=== PATIENT | female | born 1950 | race Hispanic/Latino ===

== ENCOUNTER → 2020-11-19 | Outpatient (CLI) | payer MEDICARE | LOC: RAD 11:53 | DX: M25.471 Effusion, right ankle (principal); M25.474 Effusion, right foot ==

== ENCOUNTER → 2021-07-22 | Outpatient (CLI) | payer MEDICARE ==
[~2021-07-22] MED LIST: ALENDRONATE SOD10 MG PO; ASPIRIN81 MG PO; CARVEDILOL25 MG PO; FUROSEMIDE40 MG PO; GLIMEPIRIDE2 MG PO; HYDROCHLOROTHIA25 MG PO; LEVOTHYROXINE50 MCG PO; LISINOPRIL10 MG PO; LOSARTAN POTAS100 MG PO; METFORMIN HCL500 MG PO; NIFEDIPINE ER30 M1 PO; POTASSIUM CHLO10 ME1 PO; PROTONIX20 MG PO; SIMVASTATIN40 MG PO; VITAMIN C500 MG PO; VITAMIN D310 MCG PO; zinc PO
== END ==
LOC: RAD 13:53
DX: R06.00 Dyspnea, unspecified (principal)
CPT/HCPCS: 71046

== ENCOUNTER 2021-07-23 11:24 | Observation (INO) | payer MEDICARE ==
[~2021-07-23] VITALS: Ht 152.4 cm; Wt 81.6 kg
[2021-07-23] MEDS ORDERED: HYDRALAZINE HCL 20 MG/ML VIAL IV STA (11:43)
[2021-07-23 11:53] LABS: BASOPHILS # (AUTO) 0.1 (0.0-0.1); BASOPHILS % 0.7 % (0.0-1.0); EOSINOPHILS # (AUTO) 0.4 (0.0-0.4); EOSINOPHILS % 4.1 % (0.0-6.0); HEMATOCRIT 32.4 % (34.2-44.1); HEMOGLOBIN 10.3 g/dL (12.0-16.0); LYMPHOCYTES # (AUTO) 3.2 (1.0-3.2); LYMPHOCYTES % 36.3 % (18.0-39.1); MEAN CORPUSCULAR HEMOGLOBIN 28.5 pg (28-32); MEAN CORPUSCULAR HGB CONC 31.8 g/dL (31-35); MEAN CORPUSCULAR VOLUME 89.8 fL (81-99); MONOCYTES # (AUTO) 0.7 (0.2-0.8); MONOCYTES % 7.5 % (4.4-11.3); NEUTROPHILS # (AUTO) 4.5 (2.1-6.9); NEUTROPHILS % 51.2 % (38.7-80.0); PLATELET COUNT 247 x10e3/uL (140-360); RED BLOOD COUNT 3.61 x10e6/uL (3.6-5.1); RED CELL DISTRIBUTION WIDTH 14.5 % (11.7-14.4)
[2021-07-23 11:57] LABS: INR 1.03; PROTHROMBIN TIME 14.4 seconds (11.9-14.5)
[2021-07-23 11:58] LABS: PARTIAL THROMBOPLASTIN TIME 33.4 seconds (23.8-35.5)
[2021-07-23 12:04] LABS: ALBUMIN 3.7 g/dL (3.5-5.0); ALBUMIN/GLOBULIN RATIO 0.9 (0.8-2.0); ANION GAP 16.3 mmol/L (8-16); CALCIUM 10.4 mg/dL (8.4-10.2); CREATININE, SERUM 1.22 mg/dL (0.57-1.11); POTASSIUM 4.3 mmol/L (3.5-5.1)
[2021-07-23 12:10] LABS: CREATINE KINASE MB 0.9 ng/mL (0-5.0)
[2021-07-23] MEDS ORDERED: ONDANSETRON HCL INJ 2MG/ML 2ML 2 MG/ML VIAL IV PRN (13:15)
[2021-07-23 15:30] VITALS: BP 162/64
[2021-07-23 16:00] VITALS: BP_SYST 155; BP_SYST 162; BP_DIAS 64; BP_DIAS 70
[2021-07-23] MEDS ORDERED: DEXTROSE 50% SYRINGE 50 ML IV PRN (16:00)
[2021-07-23] MEDS: INSULIN REGULAR, HUMAN 100 UNIT/1 ML SQ SCH ×2 (16:30→20:31)
[2021-07-23] MEDS ORDERED: CARVEDILOL 12.5 MG TAB PO SCH (17:00)
[2021-07-23] MEDS ORDERED: HYDROCHLOROTHIA25 MG PO (17:21)
[2021-07-23] MEDS ORDERED: METFORMIN HCL500 MG PO (17:21)
[2021-07-23] MEDS ORDERED: PROTONIX20 MG PO (17:21)
[2021-07-23] MEDS ORDERED: zinc PO (17:21)
[2021-07-23] MEDS ORDERED: GLIMEPIRIDE2 MG PO (17:21)
[2021-07-23] MEDS ORDERED: ALENDRONATE SOD10 MG PO (17:21)
[2021-07-23] MEDS ORDERED: LEVOTHYROXINE50 MCG PO (17:21)
[2021-07-23] MEDS ORDERED: POTASSIUM CHLO10 ME1 PO (17:21)
[2021-07-23] MEDS ORDERED: FUROSEMIDE40 MG PO (17:21)
[2021-07-23] MEDS ORDERED: CARVEDILOL25 MG PO (17:21)
[2021-07-23] MEDS ORDERED: ASPIRIN81 MG PO (17:21)
[2021-07-23] MEDS ORDERED: VITAMIN C500 MG PO (17:21)
[2021-07-23] MEDS ORDERED: VITAMIN D310 MCG PO (17:21)
[2021-07-23] MEDS ORDERED: LISINOPRIL10 MG PO (17:21)
[2021-07-23] MEDS ORDERED: SIMVASTATIN40 MG PO (17:21)
[2021-07-23 17:34] LABS: CHOL/HDL RATIO 2.6 (3.0-3.6)
[2021-07-23 17:53] LABS: THYROID STIMULATING HORMONE 4.499 uIU/mL (0.350-4.940)
[2021-07-23 17:54] LABS: CREATINE KINASE MB 0.8 ng/mL (0-5.0)
[2021-07-23] MEDS ORDERED: FUROSEMIDE INJ 10 MG/ML 4 ML VIAL IV ONE (18:00)
[2021-07-23] MEDS: FAMOTIDINE 20 MG/2 ML VIAL IV SCH (18:26)
[2021-07-23] MEDS: LOSARTAN POTASSIUM 25 MG TAB PO SCH (18:26)
[2021-07-23 20:26] VITALS: BP 165/68
[2021-07-23] MEDS: NIFEDIPINE CR 30 MG TAB PO SCH (20:43)
[2021-07-23 21:00] VITALS: BP 165/68
[2021-07-23] MEDS ORDERED: SIMVASTATIN 40 MG TAB PO SCH (21:00)
[2021-07-23 23:38] VITALS: BP 178/72
[2021-07-24 04:57] VITALS: BP 141/60
[2021-07-24 04:58] LABS: BASOPHILS # (AUTO) 0.1 (0.0-0.1); BASOPHILS % 0.6 % (0.0-1.0); EOSINOPHILS # (AUTO) 0.4 (0.0-0.4); EOSINOPHILS % 3.9 % (0.0-6.0); HEMATOCRIT 34.3 % (34.2-44.1); LYMPHOCYTES # (AUTO) 2.9 (1.0-3.2); LYMPHOCYTES % 28.9 % (18.0-39.1); MEAN CORPUSCULAR HGB CONC 32.1 g/dL (31-35); MEAN CORPUSCULAR VOLUME 87.3 fL (81-99); MONOCYTES # (AUTO) 0.9 (0.2-0.8); MONOCYTES % 8.4 % (4.4-11.3); NEUTROPHILS # (AUTO) 5.9 (2.1-6.9); NEUTROPHILS % 57.8 % (38.7-80.0); PLATELET COUNT 289 x10e3/uL (140-360); RED BLOOD COUNT 3.93 x10e6/uL (3.6-5.1); RED CELL DISTRIBUTION WIDTH 14.2 % (11.7-14.4)
[2021-07-24 05:30] LABS: ALBUMIN 3.8 g/dL (3.5-5.0); ALBUMIN/GLOBULIN RATIO 0.9 (0.8-2.0); ANION GAP 17.7 mmol/L (8-16); CALCIUM 10.9 mg/dL (8.4-10.2); CHOL/HDL RATIO 2.9 (3.0-3.6); CREATININE, SERUM 1.21 mg/dL (0.57-1.11); POTASSIUM 3.7 mmol/L (3.5-5.1)
[2021-07-24] MEDS: FAMOTIDINE 20 MG/2 ML VIAL IV SCH (05:47)
[2021-07-24 06:04] LABS: CREATINE KINASE MB 0.5 ng/mL (0-5.0)
[2021-07-24 07:58] VITALS: BP 146/61
[2021-07-24 08:04] VITALS: BP 146/61
[2021-07-24] MEDS: LOSARTAN POTASSIUM 25 MG TAB PO SCH (08:27)
[2021-07-24] MEDS: INSULIN REGULAR, HUMAN 100 UNIT/1 ML SQ SCH ×2 (08:30→11:54)
[2021-07-24] MEDS: NIFEDIPINE CR 30 MG TAB PO SCH (09:00)
[2021-07-24] MEDS ORDERED: HYDROCHLOROTHIAZIDE 25 MG TAB PO SCH (09:00)
[2021-07-24] MEDS ORDERED: ASPIRIN 81 MG ENTERIC COATED PO SCH (09:00)
[2021-07-24] MEDS ORDERED: NIFEDIPINE ER30 M1 PO (11:24)
[2021-07-24] MEDS ORDERED: LOSARTAN POTAS100 MG PO (11:24)
[2021-07-24 12:17] VITALS: BP 150/65
== END 2021-07-24 12:08 | disposition home or self-care (01) ==
LOC: ER 11:39 → ERHOLD 13:13 → MED/SURG2 14:06
DX: I16.0 Hypertensive urgency (principal); E11.22 Type 2 diabetes mellitus with diabetic chronic kidney disease; I13.0 Hypertensive heart and chronic kidney disease with heart failure and stage 1 through stage 4 chronic kidney disease, or unspecified chronic kidney disease; N18.2 Chronic kidney disease, stage 2 (mild); I49.9 Cardiac arrhythmia, unspecified; E78.5 Hyperlipidemia, unspecified; E66.01 Morbid (severe) obesity due to excess calories; Z68.35 Body mass index [BMI] 35.0-35.9, adult; Z90.49 Acquired absence of other specified parts of digestive tract; N17.9 Acute kidney failure, unspecified; I25.10 Atherosclerotic heart disease of native coronary artery without angina pectoris; K21.9 Gastro-esophageal reflux disease without esophagitis; E03.9 Hypothyroidism, unspecified; Z79.84 Long term (current) use of oral hypoglycemic drugs
CPT/HCPCS: 36415 ×2; 70450; 71045; 80053 ×2; 80061 ×2; 82550 ×2; 82553 ×2; 82948 ×2; 83880; 84443; 84484 ×2; 85025 ×2; 85610; 85730; 93005; 93306; 94799 ×2; 99284; G0378 ×2; J1817; J1940; U0002

== ENCOUNTER → 2021-09-12 | Outpatient (CLI) | payer MEDICARE | LOC: RAD 11:38 | DX: M54.16 Radiculopathy, lumbar region (principal) | CPT/HCPCS: 72110 ==

== ENCOUNTER → 2024-03-23 | Day surgery (SDC) | payer MEDICARE ==
[2024-03-20 10:59] LABS: BASOPHILS % 0.5 % (0.0-1.0); EOSINOPHILS # (AUTO) 0.2 (0.0-0.4); EOSINOPHILS % 2.7 % (0.0-6.0); HEMATOCRIT 34.7 % (34.2-44.1); HEMOGLOBIN 10.6 g/dL (12.0-16.0); LYMPHOCYTES # (AUTO) 2.7 (1.0-3.2); LYMPHOCYTES % 33.3 % (18.0-39.1); MEAN CORPUSCULAR HEMOGLOBIN 28.9 pg (28-32); MEAN CORPUSCULAR HGB CONC 30.5 g/dL (31-35); MEAN CORPUSCULAR VOLUME 94.6 fL (81-99); MONOCYTES # (AUTO) 0.6 (0.2-0.8); MONOCYTES % 7.3 % (4.4-11.3); NEUTROPHILS # (AUTO) 4.5 (2.1-6.9); NEUTROPHILS % 56.1 % (38.7-80.0); PLATELET COUNT 228 x10e3/uL (140-360); RED BLOOD COUNT 3.67 x10e6/uL (3.6-5.1); WHITE BLOOD COUNT 8.05 x10e3/uL (4.8-10.8)
[~2024-03-23] MED LIST changes: +FENTANYL CITRATE/PF 100MCG/2 ML INJ ONE; +HYOSCYAMINE SULFATE 0.5 MG/ML INJ ONE; +IRON PO; +METOPROLOL SUCC25 MG PO; +OMEPRAZOLE40 MG PO; +ONDANSETRON HCL INJ 2MG/ML 2ML 2 MG/ML VIAL ONE; +PLAVIX75 MG PO; +PROPOFOL IV EMULSION 10 MG/ML 20 ML VIAL ONE; +PROPOFOL IV EMULSION 50 ML IV ONE; +TRADJENTA5 MG PO; +VIT B12 PO
[2024-03-23] MEDS: LACTATED RINGER'S 1,000 ML ONE (06:07)
[2024-03-23 08:16] VITALS: TEMP 97.5
[2024-03-23 08:45] VITALS: BP 128/76; PULSE 86; RESP 16; O2SAT 99
[2024-03-23 09:06] LABS: CDIFF AG QUIK CHEK NEGATIVE (NEGATIVE); CDIFF TOX QUIK CHEK NEGATIVE (NEGATIVE)
[2024-03-24 07:23] LABS: C-REACTIVE PROTEIN 3 mg/L (0-10)
[2024-03-26 12:08] LABS: ENDOMYSIAL ANTIBODIES, IGA Negative (Negative)
[2024-03-26 12:11] LABS: IMMUNOGLOBULIN A 614 mg/dL (64-422); TISSUE TRANSGLUTAMINASE IGA AB <2 U/mL (0-3)
== END | disposition home or self-care (01) ==
LOC: OR 05:15
PROVIDERS: ATTEND Internal Medicine Gastroenterology
DX: D50.8 Other iron deficiency anemias (principal); D12.3 Benign neoplasm of transverse colon; K31.7 Polyp of stomach and duodenum; K29.50 Unspecified chronic gastritis without bleeding; K20.90 Esophagitis, unspecified without bleeding; K31.89 Other diseases of stomach and duodenum; K21.9 Gastro-esophageal reflux disease without esophagitis; K28.9 Gastrojejunal ulcer, unspecified as acute or chronic, without hemorrhage or perforation; K63.89 Other specified diseases of intestine; K64.8 Other hemorrhoids; Z71.3 Dietary counseling and surveillance; E11.9 Type 2 diabetes mellitus without complications; I25.10 Atherosclerotic heart disease of native coronary artery without angina pectoris; I10 Essential (primary) hypertension; Z71.89 Other specified counseling; E78.5 Hyperlipidemia, unspecified; E03.9 Hypothyroidism, unspecified; G89.29 Other chronic pain; M19.90 Unspecified osteoarthritis, unspecified site; Z01.812 Encounter for preprocedural laboratory examination; Z79.02 Long term (current) use of antithrombotics/antiplatelets; Z79.82 Long term (current) use of aspirin; Z79.84 Long term (current) use of oral hypoglycemic drugs; Z68.33 Body mass index [BMI] 33.0-33.9, adult; Z95.5 Presence of coronary angioplasty implant and graft
CPT/HCPCS: 36415; 43239; 43251; 43450; 45380; 45385; 82784; 83516; 83630; 83993; 85025; 86140; 86256; 87045; 87177; 87324; 87328; 87449; J1980; J2405; J2470; J2704 ×2; J3010; J7121; 45378

== ENCOUNTER → 2024-04-28 | Outpatient (REF) | payer MEDICARE ==
[~2024-04-28] MED LIST changes: -FENTANYL CITRATE/PF 100MCG/2 ML INJ ONE; -HYOSCYAMINE SULFATE 0.5 MG/ML INJ ONE; +IOPAMIDOL 370 MG/ML 100 ML INFUS..BTL INJ ONE; -ONDANSETRON HCL INJ 2MG/ML 2ML 2 MG/ML VIAL ONE; -PROPOFOL IV EMULSION 10 MG/ML 20 ML VIAL ONE; -PROPOFOL IV EMULSION 50 ML IV ONE; +SODIUM CHLORIDE 0.9% 500ML 500 ML ONE
[2024-04-28 10:38] LABS: CREATININE, SERUM 1.09 mg/dL (0.57-1.11)
== END ==
LOC: CT 09:50
PROVIDERS: ATTEND Nurse Practitioner
DX: R19.07 Generalized intra-abdominal and pelvic swelling, mass and lump (principal); K59.09 Other constipation
CPT/HCPCS: 36415; 74177; 82565; 84520; 96360; J7040; Q9967